=== PATIENT | male | born 1965 | race Caucasian/White ===

== ENCOUNTER 2020-12-31 05:31 | Day surgery (SDC) | payer OTHER ==
[~2020-12-31] VITALS: Ht 170 cm; Wt 120.0 kg
[~2020-12-31 05:31] MED LIST: AMLODIPINE BESY10 MG PO; ATENOLOL25 M1 PO; LISINOPRIL-HCT1 EAC2 PO; MONTELUKAST SOD10 MG PO; VOLTAREN **OUT50 MG PO; ZYRTEC10 M3 PO
[2020-12-31] MEDS ORDERED: NIZORAL CREAM 330 GM TOP (06:38)
[2020-12-31] MEDS ORDERED: PERCOCET 7.5/321 TAB PO (12:42)
--- NOTE | 2020-12-31 14:08 | NUR ---
PT. REQUESTED [facility] OUTPT. FIRST APPT. IS 01/02/21 @ 3:00 P.M. PT. HAS A ROLLING WALKER AND 09/03.
[2021-01-01 06:10] LABS: BASOPHIL 0.1 % (0-2); EOSINOPHIL 0.2 % (0-5); HCT 36.5 % (42.0-52.0); HGB 12.3 g/dl (13.2-18.0); LYMPHOCYTE 13.3 % (15-48); MCH 31.2 pg (25.0-31.0); MCHC 33.7 g/dL (32.0-36.0); MCV 92.6 fL (78.0-100.0); MONOCYTE 11.3 % (0-12); MPV 9.6 fL (6.0-9.5); NEUTROPHIL 74.7 % (41-80); NRBC 0; PLT 210 K/uL (150-400); RBC 3.94 M/uL (4.70-6.00); RDW 12.7 % (11.5-14.0); WBC 8.2 K/uL (4.0-10.5)
[2021-01-01 06:40] LABS: BUN/CREAT RATIO (CALC) 16.4 RATIO; CREATININE 0.73 mg/dL (0.67-1.17); POTASSIUM 3.8 mmol/L (3.5-5.1)
[2021-01-01] MEDS ORDERED: XARELTO10 MG PO (08:59)
[2021-01-01] MEDS ORDERED: FEOSOL325 MG PO (08:59)
--- NOTE | 2021-01-01 10:07 | NUR ---
CONSUELO LOPEZ AT [facility] [phone]. HE ADVISED THAT PT. COPAY FOR XARELTO IS $30.00 ADVISED PT. OF COST AND HE WAS IN AGREEMENT. PT. HAS ALSO SIGNED HIS CHOICE FORM AND COPY GIVEN.
== END 2021-01-01 13:23 | disposition home or self-care (01) ==
LOC: FAS 05:31 → FMS 05:31 → FAS 07:00 → FMS 09:06 → FAS 01-01 13:23
PROVIDERS: Legal Medicine
DX: M17.12 Unilateral primary osteoarthritis, left knee (principal); M21.162 Varus deformity, not elsewhere classified, left knee; I10 Essential (primary) hypertension; E11.9 Type 2 diabetes mellitus without complications; J45.909 Unspecified asthma, uncomplicated; E78.5 Hyperlipidemia, unspecified; Z87.01 Personal history of pneumonia (recurrent); Z79.899 Other long term (current) drug therapy
CPT/HCPCS: 36415; 73560; 80048; 82962; 85025; 86900; 86901; 94010; 94760; 94761; 94762; 97110; 97162; 97166; 97530-GP; 97535; C1713; C1776; J0171; J0697; J1170; J1885; J2250; J2270; J2370; J2405; J2704; J2710; J2795; J3010; J7120